=== PATIENT | female | born 1960 | race Hispanic/Latino ===

== ENCOUNTER 2020-07-15 11:32 | Emergency (ER) | payer OTHER ==
[~2020-07-15] VITALS: Ht 160 cm; Wt 81.6 kg
[2020-07-15] MEDS ORDERED: METHYLPREDNISOLONE SOD SUCC 125 MG/2ML VIAL IM STA (11:57)
== END 2020-07-15 12:40 | disposition home or self-care (01) ==
LOC: ER 12:01
DX: R53.81 Other malaise (principal); M06.9 Rheumatoid arthritis, unspecified; I10 Essential (primary) hypertension; E11.9 Type 2 diabetes mellitus without complications; E78.5 Hyperlipidemia, unspecified
CPT/HCPCS: 99283; J2930